=== PATIENT | female | born 2000 | race Caucasian/White ===

== ENCOUNTER 2025-01-04 01:12 | Emergency (ER) | payer OTHER ==
[~2025-01-04] VITALS: Ht 154.9 cm; Wt 59.0 kg
[2025-01-04 01:18] VITALS: O2SAT 96
[2025-01-04] MEDS: IBUPROFEN 600MG TABLET PO ONE (02:35)
[2025-01-04] MEDS: TETANUS, DIPHTHERIA, PERTUSSIS VAC/PF 0.5ML (>10YR OLD) IM ONE (02:36)
[2025-01-04] MEDS ORDERED: IBUP-2029 MT (04:17)
[2025-01-04] MEDS ORDERED: BO1 TP (04:17)
[2025-01-04 05:33] VITALS: BP 94/57; PULSE 73; RESP 18; TEMP 36.8; O2SAT 96
== END 2025-01-04 05:34 | disposition home or self-care (01) ==
LOC: EDSEX 01:12 → ER 01:12
DX: S61.215A Laceration without foreign body of left ring finger without damage to nail, initial encounter (principal); W45.8XXA Other foreign body or object entering through skin, initial encounter; Y93.89 Activity, other specified; Y92.89 Other specified places as the place of occurrence of the external cause; Y99.8 Other external cause status
CPT/HCPCS: 90715; 12002; 90471; 99283; Z7610